=== PATIENT | female | born 1960 | race Caucasian/White ===

== ENCOUNTER 2017-06-28 10:36 | Day surgery (SDC) | payer BC ==
[2017-06-26 15:19] VITALS: BMI 22.3
[2017-06-28] MEDS ORDERED: MIDAZOLAM HCL 2 MG/2 ML SINGLE DOSE VIAL IVPUSH ONE ×2 (12:13→12:21)
[2017-06-28] MEDS ORDERED: SODIUM CHLORIDE 500 ML IV SCH (12:13)
[2017-06-28 16:10] VITALS: BP 135/86; PULSE 71
--- NOTE | 2017-07-08 12:18 | PATH ---
Surgical Pathology Report Patient Name: ANGELITO DORAN [facility]. Rec. #: [id number] /Age/Gender: 1960 (Age: 57) / F Account: [id number] Location: Taken: 06/28/2017 Received: 06/28/2017 Reported: 07/08/2017 Physicians: Pedrito Mobley M.D. Mirtha De M.D. Specimen(s) Received LIVER BIOPSY Clinical History 57 year old female with abnormal LFTs and elevated EMELY, r/o autoimmune hepatitis Final Diagnosis LIVER, ULTRASOUND GUIDED CORE BIOPSY: PATCHY STEATOSIS (10%), CONSISTENT WITH FATTY LIVER DISEASE. TRICHROME STAIN SHOWS NO SIGNIFICANT FIBROSIS. IRON STAIN IS NEGATIVE FOR SIDEROSIS. NEGATIVE FOR CHRONIC HEPATITIS, CHOLESTASIS, CHOLANGITIS/BILE DUCT INJURY, GRANULOMAS, OR MALIGNANCY. SEE COMMENT. Comment: Fatty liver may be associated with diabetes mellitus, metabolic syndromes, obesity, medications, alcohol use, etc. There is no evidence of chronic or autoimmune hepatitis in this sample. Clinical and laboratory correlation recommended. Case was sent for consultation to Dr. Yudelka Borden, from [facility] [place], [place] ([id number]). The diagnosis above reflects her opinion and discussed with Dr. De. Electronically Signed Shayna Reid M.D. Gross Description Received in formalin labeled "liver," are 5 song, cylindrical portions of soft tissue ranging from 0.3-1.3 cm in length and averaging 0.1 cm in diameter. The specimens are submitted in toto in one cassette. 06/28/201706/28/2017
== END 2017-06-28 16:05 | disposition home or self-care (01) ==
LOC: JRADIR 10:36
PROVIDERS: ATTEND Internal Medicine Hepatology
PROC: BF45ZZZ Ultrasonography of Liver (ICD-10-PCS; principal; 2017-06-28)
PROC: 0FB03ZX Excision of Liver, Percutaneous Approach, Diagnostic (ICD-10-PCS; 2017-06-28)
DX: K76.0 Fatty (change of) liver, not elsewhere classified (principal)
CPT/HCPCS: 76705-TC; 76942-TC; 87899; 88305-TC; 88313-TC

== ENCOUNTER 2023-08-23 04:41 | Day surgery (SDC) | payer BC ==
[2023-08-21 12:31] VITALS: BMI 24.5
[2023-08-23 08:43] VITALS: TEMP 98.7
[2023-08-23 09:17] VITALS: BP 112/67; PULSE 62; RESP 18
== END 2023-08-23 10:45 | disposition home or self-care (01) ==
LOC: JASU-ENDO 04:41
PROVIDERS: ATTEND Internal Medicine Gastroenterology
PROC: 0DJD8ZZ Inspection of Lower Intestinal Tract, Via Natural or Artificial Opening Endoscopic (ICD-10-PCS; principal; 2023-08-23 08:00)
DX: Z12.11 Encounter for screening for malignant neoplasm of colon (principal); K64.4 Residual hemorrhoidal skin tags; K64.8 Other hemorrhoids; K57.30 Diverticulosis of large intestine without perforation or abscess without bleeding; Z80.0 Family history of malignant neoplasm of digestive organs; Z83.719 Family history of colon polyps, unspecified